=== PATIENT | female | born 1990 | race Caucasian/White ===

== ENCOUNTER 2025-03-19 13:57 | Emergency (ER) | payer OTHER ==
[~2025-03-19] VITALS: Ht 152.4 cm; Wt 118.0 kg
[2025-03-19 14:03] VITALS: BP 147/90; PULSE 93; RESP 16; TEMP 36.7; O2SAT 97
[2025-03-19 15:43] LABS: BASOPHILS % 0.3 % (0.0-2.0); EOSINOPHILS % 1.4 % (0.0-5.0); HEMATOCRIT. 39.8 % (36.0-48.0); HEMOGLOBIN. 13.2 g/dL (12.0-16.0); LYMPHOCYTES % 26.9 % (20.0-50.0); MEAN CORPUSCULAR HEMOGLOBIN 27.4 pg (28.0-32.0); MEAN CORPUSCULAR HGB CONC 33.3 g/dL (31.0-37.0); MEAN CORPUSCULAR VOLUME 82.5 fL (81.0-99.0); MONOCYTES % 6.4 % (2.0-8.0); PLATELET 269 x1000/uL (130-400); RED BLOOD CELL COUNT 4.83 mill/uL (4.2-5.4); WHITE BLOOD COUNT 11.2 x1000/uL (4.5-11.0)
[2025-03-19 15:47] LABS: CHLORIDE 105 mEq/L (98-107); SODIUM 139 mEq/L (136-145)
[2025-03-19 15:48] LABS: CARBON DIOXIDE 25 mEq/L (21-32)
[2025-03-19 15:51] LABS: HCG SCREEN NEGATIVE
[2025-03-19] MEDS: HYDROCODONE/ACETAMINOPHEN 5/325MG TABLET PO ONE (15:52)
[2025-03-19 15:53] LABS: CREATININE 0.9 mg/dL (0.6-1.0); GLUCOSE 108 mg/dL (70-105); UREA NITROGEN BLOOD 15 mg/dL (9-23)
[2025-03-19] MEDS: ACETAMINOPHEN 325MG TABLET PO ONE (16:06)
== END 2025-03-19 18:11 | disposition left against medical advice (07) ==
LOC: ER 13:57
DX: S90.112A Contusion of left great toe without damage to nail, initial encounter (principal); S90.01XA Contusion of right ankle, initial encounter; S30.811A Abrasion of abdominal wall, initial encounter; M54.9 Dorsalgia, unspecified; X58.XXXA Exposure to other specified factors, initial encounter; Y93.89 Activity, other specified; Y92.89 Other specified places as the place of occurrence of the external cause; Y99.8 Other external cause status
CPT/HCPCS: 80048; 81025; 84703; 85025; 36415; 71045; 73610; 73630; 99284; Z7610